=== PATIENT | male | born 1940 | race Caucasian/White ===

== ENCOUNTER 2019-08-19 23:52 | Emergency (ER) | payer MEDICARE ==
[2019-08-20] MEDS ORDERED: Ondansetron PF 4 MG/2 ML Vial ONE (00:34)
[2019-08-20 01:01] LABS: #Basophils 0.1 thou/uL (0.0-0.2); #Eosinphils 0.3 thou/uL (0.0-0.7); #Lymphocytes 3.4 thou/uL (1.20-3.40); #Monocytes 0.9 thou/uL (0.11-0.59); #Neutrophils 6.3 thou/uL (1.40-6.50); %Basophils 0.7 % (0.0-1.0); %Eosinophils 2.5 % (0.0-10.0); %Monocytes 7.8 % (0.0-10.0); Hemoglobin 16.6 g/dL (14.0-18.0); Mean Corpuscular HGB CONC 32.8 g/dL (32.0-36.0); Mean Platelet Volume 7.6 fL (7.4-10.4); Platelet Count 206 thou/uL (130-400); RBC Distribution Width 13.7 % (11.5-14.5); Red Blood Cell (RBC) Count 4.89 mill/uL (4.70-6.10); White Blood Cell (WBC) Count 10.9 thou/uL (4.8-10.8)
[2019-08-20 01:02] LABS: ALT (SGPT) 16 U/L (8-55); AST (SGOT) 26 U/L (5-34); Albumin 4.2 g/dL (3.4-4.8); Alcohol 206 mg/dL (Less than 10); Alkaline Phosphatase 90 U/L (40-110); Anion Gap 16 mmol/L (10-20); BUN (Urea Nitrogen) 22 mg/dL (8.4-25.7); Bilirubin, Total 0.3 mg/dL (0.2-1.2); Calc. Creatinine Clearance 0 mL/min (70-130); Calcium 9.9 mg/dL (7.8-10.44); Carbon Dioxide 23 mmol/L (23-31); Chloride 100 mmol/L (98-107); Eosinophils 2 % (0-10); Estimated GFR-MDRD 62; Globulin 3.8 g/dL (2.4-3.5); Glucose 92 mg/dL (83-110); Lymphocytes 34 % (21-51); MDiff Complete? YES; Macrocytosis SLIGHT = 6-15 cells (100X) (0-5/hpf); Monocytes 8 % (0-10); Neutrophil 55 % (42-75); Platelet Morphology Comment Appears Adequate; Potassium 3.9 mmol/L (3.5-5.1); Reactive Lymphocytes 1 % (0-10); Sodium 135 mmol/L (136-145)
[2019-08-20 01:06] LABS: PTT 28.6 SEC (22.9-36.1); Prothrombin Time 12.9 SEC (12.0-14.7)
--- NOTE | 2019-08-20 07:42 | CT ---
CT OF THE MOE WITHOUT CONTRAST: INDICATION: Fall off barstool hitting the back of the head with a head laceration. COMPARISON: None. FINDINGS: There is a right parietal scalp contusion. No acute infarct, hemorrhage, or hydrocephalus is present . There is mild chronic small-vessel white matter ischemic change. No midline shift is evident. Ma stoid air cells are clear. There is chronic sinusitis involving the left major sphenoid sinus. The remaining paranasal sinuses are clear. The skull is intact. IMPRESSION: 1. No acute intracranial abnormality. 2. Chronic sphenoid sinusitis. POS: BH
--- NOTE | 2019-08-20 07:44 | CT ---
CT CERVICAL SPINE WITHOUT CONTRAST: INDICATION: Fall with possible neck injury and neck pain. COMPARISON: None. FINDINGS: No acute fracture or subluxation is evident. There is moderate multilevel spondylosis of the cervica l spine. There is straightening of the normal cervical lordosis. Craniocervical junction appears wi thin normal limits. There is emphysematous change involving both lung apices with pleural parenchyma l scarring. IMPRESSION: 1. No acute fracture or subluxation demonstrated. 2. Moderate cervical spondylosis. 3. Biapical pleural parenchymal scarring and emphysema. POS: BH
== END 2019-08-20 10:15 | disposition home or self-care (01) ==
LOC: BURERS 23:52
DX: S00.03XA Contusion of scalp, initial encounter (principal); F10.129 Alcohol abuse with intoxication, unspecified; Y90.3 Blood alcohol level of 60-79 mg/100 ml; I48.91 Unspecified atrial fibrillation; G47.30 Sleep apnea, unspecified; W18.30XA Fall on same level, unspecified, initial encounter
CPT/HCPCS: 36415; 70450; 72125; 80053; 80307; 84484; 85025; 85610; 85730; 93005; 96361; 96374; J2405; L0120

== ENCOUNTER 2019-09-13 10:30 | Inpatient (IN) | payer MEDICARE ==
[2019-09-13] MEDS ORDERED: Albuterol Sulfate 1.25 MG/3 ML NEB ONE ×2 (10:51→12:45)
[2019-09-13] MEDS ORDERED: Aspirin Chewable 81 MG TAB ONE (10:53)
[2019-09-13 11:05] LABS: #Basophils 0.1 thou/uL (0.0-0.2); #Eosinphils 0.1 thou/uL (0.0-0.7); #Lymphocytes 1.9 thou/uL (1.20-3.40); #Monocytes 0.6 thou/uL (0.11-0.59); #Neutrophils 6.5 thou/uL (1.40-6.50); %Basophils 0.6 % (0.0-1.0); %Lymphocytes 20.9 % (21.0-51.0); %Monocytes 6.7 % (0.0-10.0); %Neutrophils 70.8 % (42.0-75.0); Hemoglobin 15.7 g/dL (14.0-18.0); Mean Corpuscular HGB CONC 31.6 g/dL (32.0-36.0); Mean Corpuscular Hemoglobin 33.6 pg (27.0-31.0); Mean Platelet Volume 7.8 fL (7.4-10.4); Platelet Count 139 thou/uL (130-400); RBC Distribution Width 14.3 % (11.5-14.5); Red Blood Cell (RBC) Count 4.67 mill/uL (4.70-6.10); White Blood Cell (WBC) Count 9.1 thou/uL (4.8-10.8)
[2019-09-13] MEDS ORDERED: methylPREDNISolone Sod Succ/PF 125 MG/2 ML VIAL ONE (11:06)
[2019-09-13 11:14] LABS: ALT (SGPT) 27 U/L (8-55); AST (SGOT) 26 U/L (5-34); Albumin 3.7 g/dL (3.4-4.8); Alkaline Phosphatase 100 U/L (40-110); Anion Gap 14 mmol/L (10-20); BUN (Urea Nitrogen) 14 mg/dL (8.4-25.7); Bilirubin, Total 0.6 mg/dL (0.2-1.2); Calc. Creatinine Clearance 0 mL/min (70-130); Calcium 9.4 mg/dL (7.8-10.44); Carbon Dioxide 27 mmol/L (23-31); Chloride 106 mmol/L (98-107); Estimated GFR-MDRD 85; Globulin 3.7 g/dL (2.4-3.5); Glucose 107 mg/dL (83-110); Potassium 4.8 mmol/L (3.5-5.1); Protein, Total 7.4 g/dL (5.8-8.1); Sodium 142 mmol/L (136-145)
[2019-09-13 11:24] LABS: MDiff Complete? YES; Macrocytosis SLIGHT = 6-15 cells (100X) (0-5/hpf); Platelet Morphology Comment Appears Adequate
[2019-09-13] MEDS ORDERED: Magnesium 2 GM/50 ML BAG (IN WATER) ONE (11:29)
[2019-09-13] MEDS ORDERED: Thiamine HCl 200 MG/2 ML VIAL ONE (11:31)
[2019-09-13] MEDS ORDERED: Enoxaparin Sodium 100 MG/ML SYRINGE ONE (12:07)
[2019-09-13] MEDS ORDERED: cefTRIAXone\\ROCEPHIN 2 GM VIAL ONE (12:07)
[2019-09-13] MEDS ORDERED: Sodium Chloride 0.9% 100 ML ONE (12:08)
[2019-09-13] MEDS ORDERED: HYDROcodone/Acetaminophen 5/325 mg Tablet PO PRN (13:47)
[2019-09-13] MEDS ORDERED: Ondansetron ODT 4 MG TAB SL PRN (13:47)
[2019-09-13] MEDS ORDERED: Ondansetron PF 4 MG/2 ML Vial IVP PRN (13:47)
[2019-09-13] MEDS ORDERED: Acetaminophen 325 MG TAB PO PRN (13:47)
[2019-09-13] MEDS ORDERED: Albuterol Sulfate 2.5 mg/3 ml Neb NEB PRN (13:50)
[2019-09-13 14:38] VITALS: BMI 20.9
[2019-09-13] MEDS: methylPREDNISolone Sod Succ/PF 125 MG/2 ML VIAL IVP SCH ×2 (15:40→21:03)
[2019-09-13] MEDS: Sodium Chloride 0.9% 1,000 ML IV SCH (15:45)
[2019-09-13 17:32] LABS: Troponin I 0.021 ng/mL (< 0.028)
--- NOTE | 2019-09-13 18:56 | RAD ---
PORTABLE CHEST 09/13/19 No prior films were available for comparison. This portable film at 1045 shows the heart to be border line in size but there is no vascular congestion or edema. No effusions are seen. There is no lobar i nfiltrate. Some of the basilar lung markings, particularly on the right seem mildly prominent. The ap pearance is more suggestive of fibrosis than early infiltrate, but should be correlated with the clin ical exam. The lungs are mildly hyperexpanded. IMPRESSION: 1. Borderline heart size with no sign of congestive change. 2. Hyperexpanded lungs with probably chronic basilar changes, particularly on the right. Correla te with symptoms and clinical exam. POS: HOME
[2019-09-13] MEDS: Azithromycin 500 MG in Sodium Chloride 0.9% 250 ML 250 ML IVPB SCH (20:59)
[2019-09-13] MEDS: Enoxaparin Sodium 100 MG/ML SYRINGE SC SCH (21:00)
[2019-09-13] MEDS: guaiFENesin ER 600 MG TAB PO SCH (21:04)
[2019-09-13 23:38] LABS: Troponin I 0.032 ng/mL (< 0.028)
[2019-09-14] MEDS: Sodium Chloride 0.9% 1,000 ML IV SCH (01:29)
[2019-09-14 06:29] LABS: ALT (SGPT) 26 U/L (8-55); AST (SGOT) 23 U/L (5-34); Albumin 3.5 g/dL (3.4-4.8); Alkaline Phosphatase 83 U/L (40-110); Anion Gap 13 mmol/L (10-20); BUN (Urea Nitrogen) 21 mg/dL (8.4-25.7); Bilirubin, Total 0.3 mg/dL (0.2-1.2); Calc. Creatinine Clearance 63 mL/min (70-130); Calcium 8.6 mg/dL (7.8-10.44); Carbon Dioxide 21 mmol/L (23-31); Chloride 108 mmol/L (98-107); Estimated GFR-MDRD 77; Globulin 3.3 g/dL (2.4-3.5); Glucose 148 mg/dL (83-110); Protein, Total 6.8 g/dL (5.8-8.1); Sodium 138 mmol/L (136-145)
[2019-09-14 06:40] LABS: #Monocytes 0.5 thou/uL (0.11-0.59); #Neutrophils 10.2 thou/uL (1.40-6.50); %Basophils 0.2 % (0.0-1.0); %Lymphocytes 8.2 % (21.0-51.0); %Monocytes 4.1 % (0.0-10.0); %Neutrophils 87.5 % (42.0-75.0); Hemoglobin 13.7 g/dL (14.0-18.0); MDiff Complete? YES; Macrocytosis SLIGHT = 6-15 cells (100X) (0-5/hpf); Mean Corpuscular HGB CONC 31.9 g/dL (32.0-36.0); Mean Corpuscular Hemoglobin 33.5 pg (27.0-31.0); Mean Platelet Volume 7.8 fL (7.4-10.4); Platelet Count 118 thou/uL (130-400); Platelet Morphology Comment Appears Decreased; RBC Distribution Width 14.7 % (11.5-14.5); Red Blood Cell (RBC) Count 4.09 mill/uL (4.70-6.10); White Blood Cell (WBC) Count 11.6 thou/uL (4.8-10.8)
[2019-09-14] MEDS: guaiFENesin ER 600 MG TAB PO SCH ×2 (09:04→20:25)
[2019-09-14] MEDS: Aspirin Chewable 81 MG TAB PO SCH (09:05)
[2019-09-14] MEDS: methylPREDNISolone Sod Succ/PF 125 MG/2 ML VIAL IVP SCH ×3 (09:05→20:19)
[2019-09-14] MEDS: Enoxaparin Sodium 100 MG/ML SYRINGE SC SCH ×2 (09:06→20:16)
[2019-09-14] MEDS ORDERED: Multivit, Adult Inj 10 ML VIAL ONE (09:46)
[2019-09-14] MEDS ORDERED: Thiamine HCl 200 MG/2 ML VIAL ONE (09:47)
[2019-09-14] MEDS ORDERED: Multivitamins, Adult 10 ML, Folic Acid 1 MG in Dextrose 5 %-0.45 % NaCl 1,000 ML IV SCH (10:00)
[2019-09-14] MEDS ORDERED: Thiamine HCl 200 MG/2 ML VIAL SLOW IVP SCH (10:00)
[2019-09-14] MEDS: clonazePAM 1 MG TAB PO SCH ×2 (10:48→20:25)
[2019-09-14] MEDS ORDERED: cefTRIAXone\\ROCEPHIN 1 GM in Sodium Chloride 0.9% 100 ML IVPB SCH (12:00)
[2019-09-14] MEDS: cefTRIAXone\\ROCEPHIN 2 GM in Sodium Chloride 0.9% 100 ML IVPB SCH (12:29)
--- NOTE | 2019-09-14 14:51 | HP ---
PRIMARY CARE PHYSICIAN: Dr. Yony Rucker at [facility]. CHIEF COMPLAINT: Shortness of breath with exertion. HISTORY OF PRESENT ILLNESS: Mr. Anedrson is a 79-year-old white male with hypertension, hyperlipidemia, chronic atrial fibrillation on Eliquis, coronary artery disease status post stent x2, under the care of Dr. Yony Rucker at [facility], he has history of COPD with continuous tobacco use, presented to ED for worsening shortness of breath. His condition started 2 days prior to admission as flu-like symptoms, described as semi-productive cough, nasal congestion, chest tightness, shortness of breath and wheezing on exertion. He denies fever or chills. Symptoms did not improve with the use of albuterol inhaler. At ED, his blood pressure was 141/93, pulse of 126, RR of 24, he was saturating 96% on 2 L. Lung findings reported presence of rales, rhonchi, diffuse wheezing and diminished breath sounds. His LABS showed white count of 9.1, hemoglobin of 15.7, hematocrit of 49, MCV of 106, platelet count of 139, neutrophils was 6.5, lymphocytes was 1.9, and monocytes was 0.6. Comprehensive metabolic panel showed sodium of 142, potassium of 4.8, chloride of 106, carbon dioxide of 27, BUN of 14, and creatinine of 0.87. GFR of 85. AST of 26 and ALT of 27. BNP was 392. First set of troponin was 0.28. Chest x-ray demonstrated borderline heart size with no congestive changes, he had hyperextended lungs with probable chronic basilar changes, particularly on the right. EKG showed atrial fibrillation with RVR. The patient was given albuterol neb x2, DuoNeb x1, he received magnesium 2 g per IV, Cardizem 60 mg by mouth, vitamin B1 injection, and Solu-Medrol 125 mg per IV. He was also started on IV fluids. Re-evaluation of the patient noted that he was still manifesting some dyspnea, however, significant improvement with wheezing and chest congestion. His heart rate also improved. Due to failed outpatient treatment for COPD exacerbation with atrial fibrillation with RVR, the patient is being admitted for evidence based treatment of COPD. Re-evaluation of the patient this afternoon noted that breathing is much improved, but still manifested dyspnea on exertion. The patient denies chest pain. The patient admitted that he has not been taking his Eliquis due to high cost. Last seen by his mortgage coordinator was more than 6 months ago. On review of medical records, the patient was seen at the ED 3 weeks for history of fall secondary to alcohol toxicity. PAST MEDICAL HISTORY: 1. Coronary artery disease, status post 2 stents; chronic atrial fibrillation, on Eliquis. 2. Hypertension. 3. Tobacco abuse. 4. Alcoholism. PAST SURGICAL HISTORY: 1. Appendectomy. 2. Skin cancer removal. 3. Cardiac stent placement x2. SOCIAL HISTORY: The patient is a [id number] smoker, smokes 1 to 1.5 packs of cigarettes per day. He has heavy alcohol use, quit drinking liquor for 2 years, but continues to drink beer about 3 to 4 a day. He has three children, he lives by himself. HOME MEDICATIONS: 1. Tylenol 650 mg every 4 hours for fever/pain. 2. Aspirin 81 mg daily. 3. Cardizem 60 mg b.i.d. 4. Mucinex 600 mg b.i.d. 5. Hydrocodone 5/325 one tablet every 6 hours p.r.n. for pain. ALLERGIES: NO KNOWN DRUG ALLERGIES. REVIEW OF SYSTEMS: GENERAL: The patient admits to fatigue, loss of appetite; negative for fever or chills. HEENT: Positive for nasal congestion, positive for scratchy throat. RESPIRATORY: Positive for shortness of breath, positive for wheezing, positive for cough. CARDIOVASCULAR: Positive for irregular heart rate, negative for chest pain, negative for cyanosis. GI: Positive for loss of appetite. Negative for nausea, vomiting or diarrhea. GENITOURINARY: Negative for urinary incontinence. Negative for hematuria. PSYCHIATRIC: No anxiety. No depression. NEUROLOGIC: Negative for paresthesia. Negative for seizures. PHYSICAL EXAMINATION: VITAL SIGNS: Blood pressure 117/56, temperature 98.1, pulse 95, RR 16, and O2 sat 95% on 2 L. GENERAL: The patient is alert, oriented, not in respiratory distress. HEENT: Normocephalic and atraumatic. Pupils equal and reactive to light. NECK: Supple. Negative for lymphadenopathy. CHEST AND LUNGS: Positive use of accessory muscles, slightly tachypneic. Positive for decreased breath sounds on both lung patterson, no wheezing, negative for rhonchi. HEART: Slightly tachycardic, irregular rhythm. Negative for murmur. ABDOMEN: Flat, soft, and nontender. Normoactive bowel sounds. EXTREMITIES: Positive for clubbing. Negative for cyanosis. Negative for edema. PSYCHIATRIC: Appropriate affect and demeanor. LABORATORY DATA: Reviewed. ASSESSMENT: 1. 79-year-old white male being admitted for acute on chronic respiratory failure secondary to chronic obstructive pulmonary disease exacerbation. 2. Elevated BNP. 3. Hypertension. 4. Coronary artery disease, status post 2 stents. 5. Chronic atrial fibrillation, on Eliquis. 6. Tobacco abuse. 7. History of alcohol abuse. 8. Elderly, living alone. 9. Full code. PLAN: 1. The patient is being admitted for acute care for evidence based treatment for COPD exacerbation. Prognosis is fair due to his multiple comorbid condition. 2. Continue IV antibiotics for treatment of acute on chronic COPD exacerbation. 3. Continue current home medications. 4. Continue Lovenox 70 mg b.i.d. 5. Monitor for alcohol withdrawal, may need to start banana bag, continue thiamine, may need to start on benzodiazepine to prevent any seizure episode secondary to alcohol withdrawal. 6. Anticipated length of stay is 2 to 3 days, discharge to home once clinically stable. Case management to assist with discharge planning. 7. Counseling given regarding smoking. Job ID: [id number]
[2019-09-14] MEDS: Fluticasone Propionate Nasal Spray 16 gm Bottle NASAL SCH (20:22)
[2019-09-14] MEDS: Montelukast Sodium 10 mg Tablet PO SCH (20:25)
[2019-09-14] MEDS: Azithromycin 500 MG in Sodium Chloride 0.9% 250 ML 250 ML IVPB SCH (20:25)
[2019-09-15] MEDS: HYDROcodone/Acetaminophen 5/325 mg Tablet PO PRN (05:40)
[2019-09-15 06:30] LABS: Hemoglobin 13.7 g/dL (14.0-18.0); Platelet Count 152 thou/uL (130-400)
--- NOTE | 2019-09-15 08:34 | PRG ---
DATE OF SERVICE: 09/14/2019 SUBJECTIVE: The patient is still complaining of intermittent shortness of breath, nasal congestion, coughing, and chest tightness; however, he admits that symptoms are improved when he first came in. The staff were concerned about possible withdrawal, the patient admitted that he normally drinks about 4-5 beers every day. His tremors had worsened since admission. OBJECTIVE: VITAL SIGNS: Blood pressure of 129/75, temperature of 98, pulse of 84, respiratory rate 18, O2 saturation 96% on 2 L. GENERAL: The patient is alert, oriented, mildly dyspneic, able to speak complete sentences. HEENT: Normocephalic, atraumatic. Pupils equal, reactive to light. NECK: Supple. Negative for lymphadenopathy. CHEST AND LUNGS: Positive for accessory use of muscles, decreased breath sounds throughout lung patterson. Negative for wheezing. HEART: Irregularly irregular, no murmur, rubs, or gallops. ABDOMEN: Flat, soft, nontender. EXTREMITIES: Negative for edema or cyanosis, positive for clubbing. PSYCH: Appropriate affect and demeanor. DIAGNOSTIC DATA: WBC of 11, hemoglobin of 13.7, hematocrit of 42.9, MCV of 105, platelet count of 118, neutrophils of 87.5, lymphocytes of 8.2. CMP: Sodium of 138, potassium 4, BUN of 21, creatinine of 0.95, glucose of 148. Troponin 0.021 and 0.32. ASSESSMENT: 1. Acute respiratory failure secondary to chronic obstructive pulmonary disease exacerbation. 2. Elevated troponin. 3. Chronic atrial fibrillation, on a blood thinner. 4. Alcohol abuse. 5. Tobacco abuse. 6. Coronary artery disease, status post two stents. 7. Hypertension. 8. Physical deconditioning. 9. History of alcohol toxicity. PLAN: 1. Continue evidence based treatment for treatment of COPD, decreased Solu-Medrol 80 mg b.i.d. to 80 mg daily. 2. Continue banana bag daily. 3. Continue benzos b.i.d. as scheduled. 4. Monitor for alcohol withdrawal. 5. Taper oxygen, to maintain sats above 92%. 6. Case management to assist with discharge planning. Job ID: [id number]
[2019-09-15] MEDS: Enoxaparin Sodium 100 MG/ML SYRINGE SC SCH ×2 (09:01→19:58)
[2019-09-15] MEDS: Aspirin Chewable 81 MG TAB PO SCH (09:05)
[2019-09-15] MEDS: guaiFENesin ER 600 MG TAB PO SCH ×2 (09:05→19:58)
[2019-09-15] MEDS: clonazePAM 1 MG TAB PO SCH ×2 (09:05→19:58)
[2019-09-15] MEDS: methylPREDNISolone Sod Succ/PF 125 MG/2 ML VIAL IVP SCH (09:06)
[2019-09-15] MEDS: Fluticasone Propionate Nasal Spray 16 gm Bottle NASAL SCH ×2 (09:08→19:59)
[2019-09-15] MEDS ORDERED: Multivit, Adult Inj 10 ML VIAL ONE (09:24)
[2019-09-15] MEDS ORDERED: Thiamine HCl 200 MG/2 ML VIAL ONE (09:25)
[2019-09-15] MEDS: Thiamine HCl 200 MG/2 ML VIAL SLOW IVP SCH (10:16)
[2019-09-15] MEDS: Multivitamins, Adult 10 ML, Folic Acid 1 MG, Thiamine HCl 100 MG in Dextrose 5 %-0.45 %... IV SCH (10:29)
[2019-09-15] MEDS: cefTRIAXone\\ROCEPHIN 2 GM in Sodium Chloride 0.9% 100 ML IVPB SCH (12:37)
[2019-09-15 19:28] LABS: ALT (SGPT) 72 U/L (8-55); AST (SGOT) 65 U/L (5-34); Alkaline Phosphatase 75 U/L (40-110); Anion Gap 13 mmol/L (10-20); BUN (Urea Nitrogen) 31 mg/dL (8.4-25.7); Bilirubin, Total 0.2 mg/dL (0.2-1.2); Calc. Creatinine Clearance 45 mL/min (70-130); Calcium 8.4 mg/dL (7.8-10.44); Carbon Dioxide 22 mmol/L (23-31); Chloride 107 mmol/L (98-107); Estimated GFR-MDRD 53; Globulin 2.9 g/dL (2.4-3.5); Glucose 174 mg/dL (83-110); Potassium 4.7 mmol/L (3.5-5.1); Protein, Total 5.9 g/dL (5.8-8.1); Sodium 137 mmol/L (136-145)
[2019-09-15] MEDS: Azithromycin 500 MG in Sodium Chloride 0.9% 250 ML 250 ML IVPB SCH (19:56)
[2019-09-15] MEDS: Montelukast Sodium 10 mg Tablet PO SCH (20:43)
--- NOTE | 2019-09-15 21:18 | RAD ---
CHEST TWO VIEWS: 09/15/19 Comparison is made with the 09/13 study. There is now a small amount of fluid in the right costophrenic angle that I do not see on the prior film. There continues to be some prominence of the lung marking s, mostly in the lung bases. It seems a bit more than before and on the lateral view there is some r etrocardiac streaking. Developing infiltrates in the lung bases are presumed. The upper lobes are myriam ar. The heart size is unchanged. The lungs are hyperexpanded as usual. IMPRESSION: Small right pleural effusion, not present two days ago. Increasing interstitial changes in the lung b ases, particularly the right. Developing infiltrates here is presumed. POS: HOME
[2019-09-16] MEDS: HYDROcodone/Acetaminophen 5/325 mg Tablet PO PRN (04:17)
[2019-09-16 05:36] VITALS: BP 136/69; TEMP 97.9
[2019-09-16] MEDS ORDERED: Polyethylene Glycol 3350 17 GM Packet PO SCH (06:15)
[2019-09-16] MEDS ORDERED: Thiamine HCl 200 MG/2 ML VIAL ONE (07:44)
[2019-09-16 08:42] LABS: Anion Gap 17 mmol/L (10-20)
--- NOTE | 2019-09-16 08:42 | PRG ---
DATE OF SERVICE: 09/15/2019 SUBJECTIVE: The patient is still complaining of shortness of breath, cough is nonproductive, has chest tightness, and complaining of loss of appetite. He is not sleeping well. OBJECTIVE: VITAL SIGNS: Blood pressure of 121/93, temperature of 97.8, pulse of 100, RR of 18, and O2 saturation 95% on 2 L. GENERAL: The patient is alert, dyspneic, and afebrile. HEENT: Normocephalic and atraumatic. Pupils equal and reactive to light. Positive for nasal congestion. NECK: Supple. Negative for lymphadenopathy. CHEST AND LUNGS: Positive use of accessory muscles, decreased breath sounds throughout lung patterson, positive for wheezing on the left lung field. HEART: Irregularly irregular; no murmur, rubs or gallops. ABDOMEN: Flat, soft, nontender. Normoactive bowel sounds. EXTREMITIES: Negative for edema or cyanosis. Positive for clubbing. PSYCHIATRIC: Appropriate affect and demeanor. ASSESSMENT: 1. Acute respiratory distress secondary to chronic obstructive pulmonary disease exacerbation. 2. Chronic atrial fibrillation, on blood thinner. 3. Alcohol abuse. 4. Tobacco abuse. 5. Coronary artery disease, status post 2 stents. 6. Hypertension. 7. Physical deconditioning. 8. History of alcohol toxicity. PLAN: 1. Continue evidence based treatment for COPD. Continue Solu-Medrol per IV. 2. Banana bag daily. 3. Monitor for alcohol withdrawal. 4. Taper oxygen to maintain sats above 92%. 5. Case management to assist with discharge planning. 6. Transfer to skilled for physical and occupational therapy for deconditioning. Job ID: [id number]
[2019-09-16 08:43] LABS: #Basophils 0.1 thou/uL (0.0-0.2); #Lymphocytes 1.3 thou/uL (1.20-3.40); #Monocytes 1.5 thou/uL (0.11-0.59); #Neutrophils 13.8 thou/uL (1.40-6.50); %Basophils 0.4 % (0.0-1.0); %Lymphocytes 7.6 % (21.0-51.0); %Monocytes 9.3 % (0.0-10.0); %Neutrophils 82.7 % (42.0-75.0); Hemoglobin 8.8 g/dL (14.0-18.0); Mean Corpuscular HGB CONC 30.7 g/dL (32.0-36.0); Mean Corpuscular Hemoglobin 32.9 pg (27.0-31.0); Mean Platelet Volume 8.8 fL (7.4-10.4); Platelet Count 155 thou/uL (130-400); RBC Distribution Width 14.9 % (11.5-14.5); Red Blood Cell (RBC) Count 2.66 mill/uL (4.70-6.10); White Blood Cell (WBC) Count 16.7 thou/uL (4.8-10.8)
[2019-09-16] MEDS ORDERED: Docusate 100 MG CAP PO SCH (09:00)
[2019-09-16 09:04] LABS: ALT (SGPT) 74 U/L (8-55); AST (SGOT) 48 U/L (5-34); Albumin 2.8 g/dL (3.4-4.8); Alkaline Phosphatase 64 U/L (40-110); BUN (Urea Nitrogen) 39 mg/dL (8.4-25.7); Bilirubin, Total 0.4 mg/dL (0.2-1.2); Calc. Creatinine Clearance 29 mL/min (70-130); Calcium 8.4 mg/dL (7.8-10.44); Carbon Dioxide 20 mmol/L (23-31); Chloride 108 mmol/L (98-107); Estimated GFR-MDRD 31; Globulin 2.5 g/dL (2.4-3.5); Glucose 221 mg/dL (83-110); Protein, Total 5.3 g/dL (5.8-8.1); Sodium 140 mmol/L (136-145)
[2019-09-16] MEDS ORDERED: Ketamine 50 MG/ML (10ML VIAL) ONE (09:14)
[2019-09-16] MEDS ORDERED: Rocuronium Bromide 50 MG/5 ML VIAL ONE (09:14)
[2019-09-16] MEDS ORDERED: Cefepime 1 GM VIAL ONE (09:21)
[2019-09-16 09:25] LABS: MDiff Complete? YES; Macrocytosis SLIGHT = 6-15 cells (100X) (0-5/hpf); Platelet Morphology Comment Appears Adequate
[2019-09-16] MEDS ORDERED: EPINEPHrine 1 MG/ML AMP ONE (09:30)
[2019-09-16] MEDS ORDERED: Fentanyl 100 MCG/2 ML VIAL ONE (09:44)
[2019-09-16] MEDS: Enoxaparin Sodium 100 MG/ML SYRINGE SC SCH (09:50)
[2019-09-16] MEDS: clonazePAM 1 MG TAB PO SCH (09:50)
[2019-09-16] MEDS: Aspirin Chewable 81 MG TAB PO SCH (09:50)
[2019-09-16] MEDS: Fluticasone Propionate Nasal Spray 16 gm Bottle NASAL SCH (09:51)
[2019-09-16] MEDS: Thiamine HCl 200 MG/2 ML VIAL SLOW IVP SCH (09:51)
[2019-09-16] MEDS: methylPREDNISolone Sod Succ/PF 125 MG/2 ML VIAL IVP SCH (09:51)
[2019-09-16] MEDS: guaiFENesin ER 600 MG TAB PO SCH (09:51)
[2019-09-16] MEDS ORDERED: Norepinephrine 4 MG/4 ML VIAL ONE ×2 (09:52→09:53)
[2019-09-16 10:14] LABS: INR-International Normal Ratio 1.2; PTT 28.7 SEC (22.9-36.1); Prothrombin Time 14.9 SEC (12.0-14.7)
--- NOTE | 2019-09-16 10:58 | CT ---
CT ABDOMEN AND PELVIS WITHOUT CONTRAST: 09/16/2019 TECHNIQUE: A spiral CT of the abdomen and pelvis was obtained for evaluation of right lower quadrant pain. The s can was done without oral or IV contrast. FINDINGS: There is a large amount of mixed density in the entire right flank, some of which is dense and some o f which is lucent. There is fluid here. This large density pushes the right kidney anteriorly out of the renal fossa. Initial considerations were some short of catastrophic infectious or inflammatory ev ent, but with bleeding. Subsequently, I found out that the patient is anticoagulated and has a drop o f his hematocrit. Thus, the findings are probably mostly or all blood, though of varying age. It is d ifficult on this scan to finger exactly what has bled. The right psoas muscle is uniformly larger paul n the right, though internally one does not see any focal area to allow the diagnosis of a psoas thiago vinay or abscess. In trying to determine the locus of the changes, it seems more like it is in or arou nd the right renal fossa. But with some fat around the right kidney, it seems less likely that the b leeding is coming from the kidney itself. The patient's aorta shows no troublesome aneurysm, just joanne e calcification. The locus of the bleeding does not appear to be near it. No free air is seen. Bilateral pleural effusions are present, a little more on the right than the left, and there is a sma ll right lower lobe infiltrate present. The liver and pancreas are unremarkable for noncontrast studi es. The spleen is small. As mentioned above, the right kidney is displaced anteriorly. It probably seth s a small cyst in its upper pole. Ultrasound would be confirmatory. The left kidney is unremarkable i n appearance. The patient's pelvis has some fluid in it from the above process, but not large amounts. The locus of the findings is really all around the area of the right renal fossa. Degenerative changes are presen t throughout the spine. The stomach is fluid filled, and there is considerable fecal material in the colon. There is no sign of a gross mechanical obstruction. IMPRESSION: 1. Catastrophic event in the right flank that, given the entirety of the clinical history, once obtai isabel, makes massive bleeding the most likely diagnosis, though not all acute. The mixed density sugges ts both acute and subacute blood. This being an infectious or inflammatory process now seems less lik makayla, knowing that he is anticoagulated and hearing his hematocrit has dropped. It remains unknown wha t the origin of bleeding would be. 2. A rather large right psoas muscle throughout its entire length but I cannot find much of focal fin dings in it to finger it as the source of bleeding. [id number], given the increase in size of thi s muscle, a psoas hematoma that bled is still in my differential. 3. Bilateral pleural effusions and small right lower lobe infiltrate. Initial discussion of findings with Dr. Lam at [address] Beckwith at 0918 hours. Foll ow-up conversation with Dr. Lam at 1013 hours, after obtaining additional opinions on these images and additional clinical information. CODE CR POS: HOME
[2019-09-16] MEDS: cefTRIAXone\\ROCEPHIN 2 GM in Sodium Chloride 0.9% 100 ML IVPB SCH (12:03)
[2019-09-16] MEDS: Multivitamins, Adult 10 ML, Folic Acid 1 MG, Thiamine HCl 100 MG in Dextrose 5 %-0.45 %... IV SCH (12:03)
--- NOTE | 2019-09-16 14:17 | DIS ---
DATE OF ADMISSION: 09/13/2019 DATE OF DISCHARGE: 09/16/2019 PRIMARY CARE PHYSICIAN: Dr. Yony Rucker at [facility]. FINAL DIAGNOSES: 1. Acute abdomen with hemorrhagic shock secondary to retroperitoneal bleed. 2. Respiratory failure. 3. Chronic atrial fibrillation, on anticoagulation. 4. Chronic obstructive pulmonary disease with acute exacerbation. 5. Coronary artery disease, status post 2 stents. 6. Tobacco abuse. 7. History of alcohol abuse. HISTORY OF PRESENT ILLNESS/COURSE IN THE NIX: Mr. Anderson is a 79-year-old white male with hypertension, hyperlipidemia, chronic atrial fibrillation on Eliquis, coronary artery disease status post 2 stents, under the care of Dr. Yony Rucker at [facility] with history of COPD and continuous tobacco use, presented to ED on 09/13/2019 complaining of shortness of breath, his condition started 2 days prior to admission as flu-like symptoms. He was admitted for COPD exacerbation and was started on IV Rocephin, azithromycin, Solu-Medrol, and breathing treatments. He was also started on anticoagulation for his atrial fibrillation with Lovenox 70 mg b.i.d. The patient's condition was gradually improving and was seen yesterday complaining of some shortness of breath with exertion. He denies any chest pain or any type of discomfort. His last white count on 09/14/2019 was 11.6, hemoglobin was 13.7, hematocrit of 42.9, and platelet count of 118. This morning, the patient complained of sudden onset of right lower quadrant pain, described as sharp and stabbing, not relieved with hydrocodone. He had a small bowel movement after a dose of MiraLAX and felt his pain improved. However, the patient became diaphoretic, clammy, pale and hypotensive, hence Code Green was called. He was then transferred to ER for monitoring and higher level of care. The patient underwent abdominal CT scan, which showed large amount of mixed density fluid in the right flank area, pushing the right kidney anteriorly out of the renal fossa. Noted also bilateral pleural effusion, right greater than the left, positive for right lower lobe infiltrate was also seen. Liver and pancreas were both unremarkable. Due to the patient's respiratory distress, he was subsequently intubated and volume resuscitated with initiation of Levophed. The patient was then transferred to [facility]. CONDITION: Guarded. MEDICATION: See list. CODE STATUS: Full code. INSTRUCTION: Spoke with Dr. Britton at around 8:15 AM and agreed to accept the patient for higher level of care. Job ID: [id number] MTDD
[2019-09-17] MEDS ORDERED: Polyethylene Glycol 3350 17 GM Packet PO SCH (09:00)
== END 2019-09-16 10:15 | disposition short-term general hospital (02) | DRG 189 ==
LOC: BURERS 10:30 → BURMED 13:59
PROVIDERS: ADMIT Family Medicine; ATTEND Family Medicine
PROC: 0BH17EZ Insertion of Endotracheal Airway into Trachea, Via Natural or Artificial Opening (ICD-10-PCS; principal; 2019-09-16)
DX: J96.20 Acute and chronic respiratory failure, unspecified whether with hypoxia or hypercapnia (principal); R57.8 Other shock; I48.20 Chronic atrial fibrillation, unspecified; J90 Pleural effusion, not elsewhere classified; J44.1 Chronic obstructive pulmonary disease with (acute) exacerbation; I10 Essential (primary) hypertension; E78.5 Hyperlipidemia, unspecified; I25.10 Atherosclerotic heart disease of native coronary artery without angina pectoris; F10.20 Alcohol dependence, uncomplicated; F17.210 Nicotine dependence, cigarettes, uncomplicated; R53.81 Other malaise; Z95.5 Presence of coronary angioplasty implant and graft; Z90.49 Acquired absence of other specified parts of digestive tract; Z79.82 Long term (current) use of aspirin; Z79.899 Other long term (current) drug therapy; R58 Hemorrhage, not elsewhere classified; R25.1 Tremor, unspecified; R91.8 Other nonspecific abnormal finding of lung field
CPT/HCPCS: 36415; 36430; 71045; 71046; 74176; 80053; 82565; 83880; 84484; 85014; 85018; 85025; 85049; 85610; 85730; 86850; 86900; 86901; 93005; 94640; 94760; 96361; 96365; 96372; 96375; J0171; J0456; J0692; J0696; J1650; J2930; J3010; J3411; J3475; J3490; J7042; J7050; J7611; J7620; P9016